=== PATIENT | female | born 1985 | race Caucasian/White ===

== ENCOUNTER 2019-01-02 15:11 | Emergency (ER) | payer OTHER ==
--- NOTE | 2019-01-02 16:52 | ULT ---
Exam: Pelvic ultrasound HISTORY: Pelvic pain. No heart tones detected on outpatient examination. COMPARISON: None TECHNIQUE: Multiple grayscale and color Doppler images were obtained in a transabdominal and transvag inal pelvic ultrasound. Spectral analysis of the Doppler waveforms of the ovaries were performed. FINDINGS: CERVIX: Not well evaluated on this examination. UTERUS AND ENDOMETRIUM: There is evidence of a single intrauterine gestation. Cardiac Doppler was per formed, but no heart tones are detected on this examination. The crown-rump length is difficult to accurately measure but grossly measures 6.1 cm which corresponds to gestational age by u ltrasound of 12 weeks and 4 days. No free fluid is present. RIGHT OVARY: Normal flow, without focal mass. LEFT OVARY: Normal flow, without focal mass. IMPRESSION: Evidence of a single intrauterine gestation, but no heart tones are detected suggesting d emise. Above findings discussed with Dr. Rehman in the emergency department on 01/02/2019 at 1648 hours.
== END 2019-01-02 17:58 | disposition home or self-care (01) ==
LOC: ERS 15:11
DX: O36.4XX0 Maternal care for intrauterine death, not applicable or unspecified (principal)
CPT/HCPCS: 76856

== ENCOUNTER 2019-01-05 08:00 | Inpatient (IN) | payer OTHER ==
--- NOTE | 2019-01-05 02:37 | PDOC.LDHP ---
Labor and Delivery H&P HPI: 31 y/o G3 P 2002 presents with 16 week 2nd trimester Missed , confirmed twice now on ultrasound, most recently on 01/02/19 at [facility]. PATIENT Presents for medical management and delivery with cytotec - chosen vs. D&E. Current gestational age (weeks): 16 Grav: 3 Para: 2 Current medications: pre- vitamins Previous surgical history: none Social history: none - Physical Exam Vital signs reviewed and normal: yes General: NAD, resting Heart: RRR Lungs: CTAB Abdomen: gravid Extremeties: no edema - Assessment 16 week Missed AB - Plan -: Admit for Cytotec induction of labor for missed AB.
[~2019-01-05 08:00] MED LIST: Butorphanol Tartrate 1 MG/ML VIAL SLOW IVP PRN; Carboprost 250 MCG/ML AMP IM PRN; Diphenoxylate HCl/Atropine Tablet PO PRN; Docusate 100 MG CAP PO PRN; HYDROcodone/Acetaminophen 5/325 mg Tablet PO PRN; Ibuprofen 800 MG TAB PO PRN; Lidocaine 1% (PF) 30 ML VIAL SC PRN; Methylergonovine 0.2 MG/ML VIAL IM PRN; NS / Oxytocin 40 units/1000ml 1,000 ML IV PRN; Ondansetron PF 4 MG/2 ML Vial IVP PRN; Promethazine HCl 25 MG/ML VIAL IM PRN; hydrALAZINE 20 MG/ML VIAL SLOW IVP PRN
[2019-01-05 08:54] VITALS: BMI 29.0
[2019-01-05] MEDS: Lactated Ringer's 1,000 ML IV SCH ×2 (09:10→17:05)
[2019-01-05] MEDS ORDERED: Misoprostol 200 MCG TAB ONE (09:27)
[2019-01-05] MEDS: Misoprostol 200 MCG TAB PO SCH ×4 (09:30→21:24)
[2019-01-05 09:47] LABS: Hemoglobin 13.3 g/dL (12.0-16.0); Mean Corpuscular Hemoglobin 32.6 pg (27.0-31.0); Mean Corpuscular Volume 90.5 fL (78.0-98.0); Mean Platelet Volume 8.3 fL (7.4-10.4); Platelet Count 253 thou/uL (130-400); RBC Distribution Width 10.9 % (11.5-14.5); Red Blood Cell (RBC) Count 4.07 mill/uL (4.20-5.40); White Blood Cell (WBC) Count 9.4 thou/uL (4.8-10.8)
[2019-01-05 17:29] VITALS: BP 115/72; TEMP 98.1
[2019-01-05] MEDS ORDERED: Ibuprofen 800 MG TAB PO PRN (21:34)
[2019-01-05] MEDS ORDERED: Acetaminophen 325 MG TAB PO PRN (21:35)
[2019-01-05] MEDS ORDERED: Ibuprofen 800 MG TAB PO SCH (21:45)
[2019-01-06] MEDS: Lactated Ringer's 1,000 ML IV SCH (00:42)
[2019-01-06] MEDS: Misoprostol 200 MCG TAB PO SCH ×2 (01:26→05:34)
--- NOTE | 2019-01-06 06:46 | PDOC.EVN ---
Event Note - Event Note Event Note: ALONSO Allen Called to LDR7 for passage with placenta (time: 634). I have evaluated the patient at bedside. Stable. EBL 50ml or so POC appear intact. See dictation. Patient's physician enroute.
--- NOTE | 2019-01-06 08:48 | PRG ---
DATE OF SERVICE: 01/06/2019 CARE GIVER on-call note. TIME OF EVALUATION: 06:40. In brief, I was the CARE GIVER on-call and was called to LDR-7 when I was on the saucedo. The patient, a patient of Dr. Greco, had spontaneously passed the 16-week demise (abortus) while in the toilet. I arrived within 3 minutes of being called. The products of conception looks to be intact with a fetus and placenta together. When I arrived, the patient was still in the toilet, but was being walked back toward the bed and the fetus and the placenta had been recovered from the toilet and was in a covered towel in the LDR. I evaluated the patient's abdomen and is soft and nontender. There is no evidence of vaginal bleeding on vaginal inspection. I evaluated the products of conception and everything appears intact. I do not suspect retained products at this time. The EBL according to the nurses who are in attendance, and based on my observation, is under 100 mL (likely 50). Dr. Greco has been called and is on his way. FINAL DIAGNOSIS: Completed second trimester with vaginal delivery. Full details and full annotation to come by Dr. Greco. Job ID: [id number]
== END 2019-01-06 12:00 | disposition home or self-care (01) | DRG 779 ==
LOC: L&D 08:11
PROVIDERS: ADMIT Obstetrics & Gynecology; ATTEND Obstetrics & Gynecology
PROC: 3E033VJ Introduction of Other Hormone into Peripheral Vein, Percutaneous Approach (ICD-10-PCS; principal; 2019-01-05)
PROC: 10E0XZZ Delivery of Products of Conception, External Approach (ICD-10-PCS; 2019-01-05)
DX: O02.1 Missed abortion (principal); Z3A.16 16 weeks gestation of pregnancy
CPT/HCPCS: 36415; 85027; 86850; 86900; 86901; J0595